=== PATIENT | female | born 1960 | race Caucasian/White ===

== ENCOUNTER 2017-12-02 05:31 | Day surgery (SDC) | payer BC ==
[~2017-12-02] VITALS: Ht 160 cm; Wt 98.8 kg
[~2017-12-02 05:31] MED LIST: ALEVE PM CAPLE1 EACH PO; ASPIR 8181 M1 PO; CALCIUM600 M1 PO; GLUCOSAMINE &1 EAC1 PO; MULTIVITAMIN1 EAC2 PO; NOLVADEX20 MG PO; TRIAMTERENE-HC1 EAC1 PO; TYLENOL PM EX-1 EACH PO
[2017-12-02 05:58] VITALS: BP 160/78
[2017-12-02 09:25] VITALS: BP 151/81
[2017-12-02 10:28] VITALS: BP 131/79
== END 2017-12-02 10:50 | disposition home or self-care (01) ==
LOC: SDC 05:31
DX: N84.0 Polyp of corpus uteri (principal); N95.0 Postmenopausal bleeding; N88.2 Stricture and stenosis of cervix uteri; I10 Essential (primary) hypertension; Z79.82 Long term (current) use of aspirin; Z80.1 Family history of malignant neoplasm of trachea, bronchus and lung; Z80.3 Family history of malignant neoplasm of breast; Z80.0 Family history of malignant neoplasm of digestive organs; Z80.8 Family history of malignant neoplasm of other organs or systems
CPT/HCPCS: 88305; J0131; J0330; J0690; J1100; J1885; J2250; J2405; J3010

== ENCOUNTER 2018-03-09 09:27 | Day surgery (SDC) | payer BC ==
[~2018-03-09] VITALS: Ht 160 cm; Wt 98.9 kg
[~2018-03-09 09:27] MED LIST changes: +TAMOXIFEN CITRA20 MG PO
[2018-03-09] MEDS ORDERED: XANAX0.5 MG BC (10:39)
[2018-03-09 10:55] VITALS: BP 187/86
[2018-03-09 15:20] VITALS: BP 157/81
[2018-03-09 16:18] VITALS: BP 144/70
[2018-03-09 17:00] VITALS: BP 149/80
== END 2018-03-09 17:05 | disposition home or self-care (01) ==
LOC: SDC 09:27
DX: D17.22 Benign lipomatous neoplasm of skin and subcutaneous tissue of left arm (principal); L92.8 Other granulomatous disorders of the skin and subcutaneous tissue; I10 Essential (primary) hypertension; Z85.3 Personal history of malignant neoplasm of breast; Z85.828 Personal history of other malignant neoplasm of skin; Z79.82 Long term (current) use of aspirin; Z79.810 Long term (current) use of selective estrogen receptor modulators (SERMs); R60.0 Localized edema
CPT/HCPCS: 88304; 88305; J0330; J0690; J1100; J1170; J2250; J2310; J2405; J2710; J2765; S0020